=== PATIENT | female | born 1990 | race Caucasian/White ===

== ENCOUNTER 2020-11-25 05:08 | Inpatient (IN) | payer BC, OTHER ==
[~2020-11-25] VITALS: Ht 170.2 cm; Wt 77.1 kg
[2020-11-25 05:52] LABS: Urine Bacteria FEW /hpf (None Seen); Urine Blood 3+ /uL (Negative); Urine Specific Gravity 1.005 (1.001-1.035); Urine WBC 8 /hpf (0 - 5)
[2020-11-25] MEDS ORDERED: cefTRIAXone 1GM/50ML D5W 50 ML IV ONE (06:15)
[2020-11-25] MEDS ORDERED: SODIUM CHLORIDE 0.9% 1,000 ML IV ONE (06:15)
[2020-11-25 06:27] LABS: Basophils # (auto) 0 10 ^3/uL (0-0.2); Basophils % (auto) 0.7 % (0.0-2.0); Eosinophils # (auto) 0.3 10 ^3/uL (0-0.8); Eosinophils % (auto) 3.5 % (0.0-7.0); Hematocrit 40.4 % (36.0-46.0); Hemoglobin 14.2 g/dL (12.2-16.2); Lymphocytes # (auto) 2.8 10 ^3/uL (0.4-5.4); Mean Corpuscular Hemoglobin 33.9 pg (28.0-32.0); Mean Corpuscular Hgb Conc. 35.2 g/dL (32.0-36.0); Mean Corpuscular Volume 96.2 fL (80.0-100.0); Monocytes # (auto) 0.5 10 ^3/uL (0-1.3); Monocytes % (auto) 7.1 % (0.0-12.0); Neutrophils # (auto) 3.6 10 ^3/uL (1.6-8.6); Neutrophils % (auto) 49.7 % (37.0-80.0); Nucleated Red Blood Cells % 0.1 %; Platelet Count (auto) 183 10^3/uL (140-450); Red Blood Cells 4.21 10^6/uL (4.0-5.20); Red Cell Distribution Width 13.2 % (11.8-14.3); White Blood Cell 7.2 10^3/uL (4.4-10.8)
[2020-11-25 06:43] LABS: Albumin 3.9 g/dL (3.4-5.0); Calcium 8.4 mg/dL (8.5-10.1); Potassium 3.4 mmol/L (3.5-5.1)
[2020-11-25] MEDS ORDERED: MORPHINE SULF INJ 2 MG/ML SYRINGE 1ML IV PRN (06:45)
[2020-11-25] MEDS ORDERED: ONDANSETRON HCL 4 MG/2 ML VIAL IV PRN ×3 (06:45→15:15)
[2020-11-25] MEDS ORDERED: HYDROcodone-ACET 5/325MG TAB PO PRN (06:45)
[2020-11-25] MEDS ORDERED: NITROGLYCERIN 0.4 MG SL TAB SL PRN (06:45)
[2020-11-25] MEDS ORDERED: MORPHINE SULFATE 4 MG/ML SYR/VIAL IV PRN (06:45)
[2020-11-25] MEDS ORDERED: SODIUM CHLORIDE 0.9% 1,000 ML IV SCH (06:45)
[2020-11-25 06:47] LABS: BUN/Creatinine Ratio 17.6; Bilirubin, Total 0.3 mg/dL (0.2-1.0); Total Protein 7.2 g/dL (6.4-8.2)
[2020-11-25 06:52] LABS: INR 0.95 (0.9-1.15); Partial Thromboplastin Time 26.5 sec (23.0-31.2)
[2020-11-25] MEDS ORDERED: FAMOTIDINE (10MG/ML) 2ML VL IV SCH (10:00)
[2020-11-25] MEDS ORDERED: fentaNYL CITRATE 100 MCG/2 ML VL ONE (13:09)
[2020-11-25] MEDS ORDERED: DexAMETHasone SOD PHOS 10MG/1ML VIAL INJ ONE (13:09)
[2020-11-25] MEDS ORDERED: ONDANSETRON HCL 4 MG/2 ML VIAL ONE (13:09)
[2020-11-25] MEDS ORDERED: MIDAZOLAM HCL 1MG/1ML-2 ML VIAL ONE (13:09)
[2020-11-25] MEDS ORDERED: ceFAZolin 1GM/50ML 50 ML IV ONE (14:20)
[2020-11-25] MEDS ORDERED: ePHEDrine SULFATE 50 MG/ML AMP IV ONE (14:35)
[2020-11-25] MEDS ORDERED: PROPOFOL 10 MG/ML 20 ML IV ONE (14:43)
[2020-11-25] MEDS ORDERED: OXYTOCIN 10UNIT/ML 1ML VIAL ONE (14:54)
[2020-11-25] MEDS ORDERED: LACTATED RINGER'S 1,000 ML IV SCH (15:15)
[2020-11-25] MEDS ORDERED: HYDROmorphone HCL 2 MG/ML VL IV PRN (15:15)
[2020-11-25 15:35] VITALS: BP 133/98
[2020-11-26] MEDS ORDERED: cefTRIAXone 1GM/50ML D5W 50 ML IV SCH (09:00)
== END 2020-11-25 15:40 | disposition home or self-care (01) | DRG 770 ==
LOC: ER 05:08 → TELE 06:35 → OVERFLOW 06:36
PROVIDERS: ADMIT Nurse Practitioner Family; ATTEND Specialist
PROC: 10D17ZZ Extraction of Products of Conception, Retained, Via Natural or Artificial Opening (ICD-10-PCS; principal; 2020-11-25 14:35)
DX: O03.38 Urinary tract infection following incomplete spontaneous abortion (principal); Z20.822 Contact with and (suspected) exposure to COVID-19
CPT/HCPCS: 36415; 80053; 81001; 84702; 85025; 85610; 85730; 86850; 86900; 86901; 87426; 96365; 96375; G0378; J0690; J0696; J1100; J2250; J2405; J2704; J3490